=== PATIENT | male | born 1945 | race Caucasian/White ===

== ENCOUNTER → 2020-02-16 10:06 | Outpatient (CLI) | payer MEDICARE, OTHER, SELFPAY ==
[2020-02-16 11:50] LABS: Prostate Specific Ag Screen 2.7 ng/ml (0.0-4.0)
== END ==
PROVIDERS: Visit Provider Urology
DX: Z12.5 Encounter for screening for malignant neoplasm of prostate (principal)
CPT/HCPCS: 36415; G0103

== ENCOUNTER → 2021-02-15 11:37 | Outpatient (CLI) | payer MEDICARE, OTHER, SELFPAY ==
[2021-02-16 08:59] LABS: PSA, Free 0.87 ng/mL; Prostate Specific Ag 2.4 ng/mL (0.0-4.0)
== END ==
PROVIDERS: Visit Provider Urology
DX: N40.0 Benign prostatic hyperplasia without lower urinary tract symptoms (principal)
CPT/HCPCS: 36415; 84153; 84154

== ENCOUNTER → 2022-11-25 10:53 | Outpatient (CLI) | payer MEDICARE, OTHER, SELFPAY ==
[2022-11-25 12:01] LABS: Blood Urea Nitrogen 26 mg/dl (9-20); Estimated Glomerular Filt Rate 59 ml/min (>60); GFR (African American) 71 ML/MIN (>60)
== END ==
PROVIDERS: PCP Family Medicine; Visit Provider Surgery
DX: Z01.812 Encounter for preprocedural laboratory examination (principal)
CPT/HCPCS: 36415; 82565; 84520

== ENCOUNTER → 2022-12-02 09:29 | Outpatient (CLI) | payer MEDICARE, OTHER, SELFPAY ==
--- NOTE | 2022-12-02 09:29 | CT_ITS ---
FINAL REPORT TECHNIQUE: After the administration of oral and intravenous contrast, axial images were obtained through the abdomen and pelvis by computed tomography. The study was performed with techniques to keep radiation dose as low as reasonably achievable, (ALARA). Individual dose reduction techniques using automated exposure control or adjustment of mA and/or kV according to the patient's size were employed. CLINICAL HISTORY: nausea FINDINGS: Abdomen: The lung bases are clear. The liver parenchyma is homogeneous. There is a large gallstone within the gallbladder. The spleen, pancreas, adrenals appear unremarkable. There is a multitude of benign-appearing cysts in both kidneys. In addition, there is a lobular apparently enhancing mass arising from the posterolateral margin of the right kidney measuring 1.8 cm in greatest dimension. This is well seen on image 51 of series 2. The aorta is normal in caliber. There is no free fluid or adenopathy. Pelvis: The appendix is unremarkable. There is moderate diverticulosis without evidence of diverticulitis. The urinary bladder is unremarkable. There is a moderate right inguinal hernia containing bowel. There is no bowel obstruction. There is no free fluid or adenopathy. IMPRESSION: 1.8 cm enhancing mass in the periphery of right kidney concerning for renal cell carcinoma. A dedicated pre and post infusion of valuation would be of value, urologic consultation recommended. Large gallstone within the gallbladder. Reviewed, Interpreted and Dictated by Darío Nieto MD Transcribed by China Lomeli Authenticated and [facility]
== END ==
PROVIDERS: PCP Family Medicine; Visit Provider Surgery
DX: R10.9 Unspecified abdominal pain (principal)
CPT/HCPCS: 74177; Q9967

== ENCOUNTER → 2022-12-11 13:17 | Outpatient (CLI) | payer MEDICARE, OTHER, SELFPAY ==
[2022-12-11 15:06] LABS: Blood Urea Nitrogen 22 mg/dl (9-20); Estimated Glomerular Filt Rate 59 ml/min (>60); GFR (African American) 71 ML/MIN (>60)
== END ==
PROVIDERS: PCP Family Medicine; Visit Provider Urology
DX: Z01.812 Encounter for preprocedural laboratory examination (principal); N28.89 Other specified disorders of kidney and ureter
CPT/HCPCS: 36415; 82565; 84520

== ENCOUNTER → 2022-12-19 08:36 | Outpatient (CLI) | payer MEDICARE, OTHER, SELFPAY ==
--- NOTE | 2022-12-19 08:41 | CT_ITS ---
FINAL REPORT TECHNIQUE: Pre- and postcontrast images of the abdomen were performed by computed tomography. CLINICAL HISTORY: RENAL MASS, abn CT 12/02/22 COMPARISON: 12/02/2022 FINDINGS: Mild atelectasis is seen at the left lung base. There is a large gallstone with gallbladder wall thickening. Cholecystitis not excluded. If indicated, this could further evaluated with nuclear medicine hepatobiliary scan. The liver is normal in size and attenuation. The spleen is unremarkable. The adrenals are normal. The pancreas is unremarkable. There are multiple bilateral renal masses. Mass in the lateral lower pole of the right kidney demonstrating contrast enhancement measures 18 mm. There is also a 15 mm mass in the anterior left kidney with contrast enhancement. Enhancing mass in the mid lateral left kidney measures 10 mm. There is also a small enhancing mass in the lateral right mid kidney measuring 4 mm. These are all consistent with renal neoplasm, likely renal cell carcinoma. There are also bilateral, simple renal cysts. Renal veins are unremarkable. There is a small umbilical hernia containing fat. IMPRESSION: Multiple enhancing bilateral renal masses most consistent with renal cell carcinoma. Large gallstone with gallbladder wall thickening. Cholecystitis not excluded. Consider follow-up nuclear medicine hepatobiliary scan. Reviewed, Interpreted and Dictated by Dex Alejandra III, MD Transcribed by Nettie Wolff Authenticated and [facility]
== END ==
PROVIDERS: PCP Family Medicine; Visit Provider Urology
DX: N28.89 Other specified disorders of kidney and ureter (principal)
CPT/HCPCS: 74170; Q9967

== ENCOUNTER → 2023-02-26 10:42 | Outpatient (CLI) | payer MEDICARE, OTHER, SELFPAY ==
[2023-02-26 10:46] LABS: Microscopic, Urine URINE MICROSCOPIC (MICROSCOPIC)
[2023-02-26 11:25] LABS: Appearance,Urine CLEAR (Clear); Basophils % 0.8 % (0.1-2.0); Blood, Urine Negative (Negative); Color,Urine YELLOW (Yellow); Eosinophils # 0.3 K/mm3 (0.0-0.4); Glucose,Urine (UA) Negative (Negative); Hemoglobin 14.5 g/dL (14.1-18.0); Ketones,Urine Negative (Negative); Leukocyte Esterase,Urine Negative (Negative); Lymphocytes # 1.4 K/mm3 (0.7-4.5); Lymphocytes % 27.7 % (10-50); Mean Corpuscular HGB Conc 31.5 g/dL (31.8-35.4); Mean Corpuscular Hemoglobin 31.7 pg (27.0-31.2); Mean Corpuscular Volume 100.5 fl (80-94); Mean Platelet Volume 7.5 fl (7.4-10.4); Monocytes # 0.3 K/mm3 (0.1-1.0); Monocytes % 6.6 % (1.7-9.3); Neutrophils # 3.1 K/mm3 (1.8-7.8); Neutrophils % 59.9 % (37.0-80.0); Nitrate,Urine Negative (Negative); Platelet Count 148 K/mm3 (142-424); Protein,Urine Negative (Negative); Red Blood Count 4.57 M/mm3 (4.60-6.20); Red Cell Distribution Width 13.2 % (11.5-17.5); Specific Gravity, Urine >= 1.030 (1.005-1.030); Urobilinogen,Urine 0.2 EU/dl (0.2); White Blood Count 5.2 K/mm3 (4.8-10.8)
[2023-02-26 11:48] LABS: Bilirubin,Urine Negative (Negative)
[2023-02-26 11:50] LABS: Chloride 99 mmol/L (98-107)
[2023-02-26 11:51] LABS: Potassium 4.5 mmoL/L (3.5-5.1); Sodium 141 mmol/L (136-145)
[2023-02-26 11:54] LABS: Anion Gap 18.5 mEq/L (5-15); Blood Urea Nitrogen 21 mg/dl (9-20); Calcium 8.9 mg/dl (8.4-10.2); Carbon Dioxide 28 mmol/L (22.0-30.0); Estimated Glomerular Filt Rate 65 ml/min (>60); GFR (African American) 78 ML/MIN (>60); Glucose 96 mg/dl (74-100)
[2023-02-26 13:07] LABS: Squamous Epithelial Cell,Urine Occasional #/hpf (0-5); WBC,Urine Occasional #/hpf (0-3)
== END ==
PROVIDERS: PCP Family Medicine; Visit Provider Surgery
DX: K40.90 Unilateral inguinal hernia, without obstruction or gangrene, not specified as recurrent (principal)
CPT/HCPCS: 36415; 80048; 81001; 85025

== ENCOUNTER 2023-03-16 05:59 | Day surgery (SDC) | payer MEDICARE, OTHER, SELFPAY ==
[2023-03-10 14:55] VITALS: BMI 26.7
--- NOTE | 2023-03-13 10:53 | SUR.PREOP ---
spoke to pt mother, who stated pt has been sick all week with a fever and the doctors do not want to put her on antibiotics d/t her having this procedure on thursday Robert in ENT clinic was notified of this and talked to the mother who stated she will call the hospital thursday morning with an update on patient and will go from there.
[2023-03-16] VITALS (14 sets, daily range): BP systolic 119–140; BP diastolic 66–81; PULSE 54–66; RESP 14–18; TEMP 36.2–36.5; O2SAT 93–99
--- NOTE | 2023-03-16 06:52 | P.PN_ITS ---
[facility] Disclaimer: The information contained in this section may have been updated after the patient was seen, as this information can be updated by other users. Medical History Benign prostatic hyperplasia Cancer of kidney Cataract History of cataract Hypertension Kidney stone Urinary tract infection Surgical History H/O cystoscopy History of colonoscopy History of prostate surgery Family History Other Family history of cancer Social History Smoking Status: Never smoker second hand exposure: No alcohol intake: never substance use type: denies use current occupational status: retired Travel in the last 8 weeks: None household members: significant other housing: house current occupational exposures/hazards: No caffeine: No do you feel safe at home: Yes [facility] Anesthesia Checklist Patient Identification Patient Identification: Arm Band and Family Structural Data Admitted From: Home Planned Operative Procedure/s: Lapoaroscopic Inguinal herni and Umbilical r epair. Consent for Planned Operative Procedure(s) Verified: Yes Verified Documents: Surgical Consent and History and Physical NPO Status Verified Time NPO: 00:00 Additional verifications Patient : No Anesthesia Reactions: No Hx Blood Transfusions: No Blood Transfusion Reaction: No Cephalosporin Allergy: No Airway Assessment C-Spine Mobility Assessed: Yes TMJ Mobility Assessed: Yes Dentition: Good Dentition Neurological Assessment Level of Consciousness: Awake, Alert, Appropriate and Follows Commands Hx Seizures: No Numbness or tingling in extremities: No Anesthesia Plan Anesthesia Risk discussed: Yes ASA Class: III Anesthesia Type: General Preoperative Comments Pre-Operative Comments: History of possible renal cancer. Hypertension.
--- NOTE | 2023-03-16 07:58 | EXP.EVENT.NO ---
Plan was made to proceed with laparoscopic bilateral inguinal hernia repair with concomitant open umbilical hernia repair. Apparently after induction of general anesthesia nursing staff made attempts to place Leyva catheter. There was no return of urine. Anesthesia aided in attempt to place Leyva catheter. There was never any return of urine. I then entered the room and examined the patient. Catheter was replaced with 18 Danish coud? catheter and attempt was made for insertion. However there was resistance encountered near the region of presumed prostate and the catheter could not be advanced. There was some blood at the meatus. Due to patient likely having some BPH, although he did have previous TURP, and potential that he had creation of false passage with initial attempt at placement of urinary catheter by nursing and anesthesia plan was made to abort the procedure since urology not available at this time. I will see if he is able to void in the postoperative phase. If not, patient may need transfer for urology evaluation.
--- NOTE | 2023-03-16 08:12 | P.PNANES_ITS ---
[facility] Anesthesia Record Part I Anesthesia Record I Intake, IV Amount: 800 Estimated blood loss (mL): 0 Urine output (mL): 0 Blood Products used (#): none Blood Pressure: 131/75 SaO2: 94 Pulse Rate: 61 Respiratory Rate: 14 Temperature: 97.1 F Patient is:: Drowsy and Stable Stable to PACU at:: 08:05 Comments:: Surgery cancelled due to inability to insert layton catheter.
--- NOTE | 2023-03-16 09:09 | SUR.PHASEII ---
patient has drank two cups of water so far, pt feels no need to urinate just yet.
--- NOTE | 2023-03-16 10:11 | SUR.PHASEII ---
0945 abdomen noted to be hard, pt has had more bloody drainage from penis than pacu. pt cleaned and bed changed. 0955- pt felt the need to urinate. he had 250ml of blood tinged urine per urinal. 1005- Debbie Ni RN obtained the bladder scanned which showed 400ml still in bladder. Dr. Yoo notified.
--- NOTE | 2023-03-16 10:12 | SUR.OPER ---
0712- THIS NURSE ATTEMPTED TO INSERT 16FR COUDE CATHETER AND NOTED DIFFICULTY WITH INSERTION. THIS NURSE INSTRUCTED [facility] [employer] TO ASSIST OR GET ANOTHER RN TO ATTEMPT INSERTION. RETAIL AND REST[employer]URANT ASSOCIATE APPLIED STERILE GLOVES AND ADVANCED 16FR COUDE IN WITHOUT DIFFICULTY. BALLOON WAS INFLATED AND NO URINE OUTPUT WAS NOTED AT THIS TIME. SECOND RN AT BEDSIDE AND BALLOON WAS DEFLATED. MD AT BESIDE AND ATTEMPTED TO INSERT 18FR COUDE WITH DIFFICULTY. BRIGHT RED BLOOD WAS NOTED ON REMOVAL. MD ORDERED TO CANCEL PROCEDURE D/T DIFFICULTY WITH CATHETER INSERTION.
--- NOTE | 2023-03-16 11:03 | SUR.PHASEII ---
125ml pink tinged urine at 1025 357ml pink tinged urine at 1100 abd still noted to be firm, patient denies any pain upon assessment.
--- NOTE | 2023-03-16 12:04 | SUR.PHASEII ---
225ml out at 1145 dr. ho at bedside at 1136 and ok'd patient to be discharge.
--- NOTE | 2023-03-16 13:50 | EXP.ANES.II ---
[facility] Anesthesia Record Part II Anesthesia Record Part II Discharge Time: 08:35 Destination: Surgical Day Care (OP Surgery) PACU nurse assessment reviewed?: Yes Patient Condition:: Good Anesthesia Complications:: None Swallowing reflex intact?: Yes Cyanosis?: No Blood Pressure: 126/67 Pulse Rate: 57 Temperature: 97.4 F Mental Status: Alert & Oriented Pain level:: 0 Nausea and/or vomitting:: None Intake, IV Amount: 0
== END 2023-03-16 11:54 | disposition home or self-care (01) ==
PROVIDERS: PCP Family Medicine; Visit Provider Surgery
PROC: (CPT 49650; principal; 2023-03-16 07:30)
DX: Z53.09 Procedure and treatment not carried out because of other contraindication (principal); N39.9 Disorder of urinary system, unspecified; K40.20 Bilateral inguinal hernia, without obstruction or gangrene, not specified as recurrent; Z79.899 Other long term (current) drug therapy
CPT/HCPCS: 49650; 96374; J2405

== ENCOUNTER → 2023-05-11 11:38 | Outpatient (CLI) | payer MEDICARE, OTHER, SELFPAY | PROVIDERS: PCP Family Medicine; Visit Provider Urology | DX: N28.89 Other specified disorders of kidney and ureter (principal) | CPT/HCPCS: 87086 ==

== ENCOUNTER 2024-06-16 11:05 | Emergency (ER) | payer MEDICARE, OTHER, SELFPAY ==
[2024-06-16 11:05] VITALS: BP 135/66; PULSE 57; RESP 18; TEMP 36.4; O2SAT 99; BMI 27.3
--- NOTE | 2024-06-16 11:28 | XR_ITS ---
FINAL REPORT CLINICAL HISTORY: fall yesterday, LT WRIST PAIN COMPARISON: None FINDINGS: LEFT WRIST Three views demonstrate no acute fracture or dislocation. The visualized joint spaces are normally aligned. The soft tissues are unremarkable. IMPRESSION: No acute bony abnormality. Reviewed, Interpreted and Dictated by Darío Nieto MD Transcribed by Mylene Ramirez Authenticated and [facility]
--- NOTE | 2024-06-16 12:15 | EXP.UTC ---
Discharge Plan Disposition Patient Disposition: Home, Self-Care Condition: Good Prescriptions Prescriptions: No Action cholecalciferol (vitamin D3) 1,000 unit capsule 1,000 unit PO ONCE multivitamin tablet 1 tab PO ONCE losartan 50 mg tablet 100 mg PO DAILY amlodipine 5 mg tablet 7.5 mg PO DAILY terazosin 2 mg capsule 2 mg PO DAILY Referrals Follow up/Referrals: Carlin Boyd DO [Staff Physician] - See instructions Marco Nayak MD [Primary Care Provider] - See instructions Activity Restrictions/Add. Instructions Additional Instructions/Restrictions: *RICE, Rest the extremity, Ice 15-20 minutes 3-4 times daily, Compress- wear the jeff wrap as discussed as much as possible to help reduce swelling and pain, Elevate the extremity when at rest *Jeff wrap is for support and help control swelling, use it except in the shower. Be sure that is not to tight but not to loose either *Elevate when resting? *Ibuprofen 600-800mg every 6-8 hours as needed for pain an inflammation. If need something more can take Tylenol in between doses of Ibuprofen to help Immediately follow up with your family doctor for new or worsening of symptoms, or no noticeable improvement over the next 3-5 days Clinical Impressions Clinical Impression: Contusion of left wrist Qualifiers: Encounter type: initial encounter Qualified Code(s): S60.212A - Contusion of left wrist, initial encounter Instructions Patient Instructions: Wrist Sprain, DI for Wrist Sprain, How To Perform RICE (Rest, Ice, Compress, Elevate) Print Language Print Language: Cuban Discharge ED Provider: Marnie Sue [facility] General Stated complaint: AO fall left wrist pain Mode of Arrival: Ambulatory Source of Information: Patient Limitations: No Limitations Time Seen by Provider: 06/16/24 12:15 Description of Symptoms (Recalled from Triage Doc. by RN): left wrist pain,fell HEENT Symptoms (Recalled from RN notes): No Resp Symptoms (Recalled from RN notes): No Skin Symptoms (Recalled from RN notes): No MS Symptoms (Recalled from RN notes): Yes Functional Status (Recalled from RN notes): na History of Present Illness Provider Complaint: Patient fell last night at home and stuck his hands out to catch his fall and hurt his left wrist States that he has a few other scratches and bumps but they are not bothering him States he has pain in his left wrist when he turns or moves it certain ways so today he came in to get it checked Related Data Home Medications ?Medication ?Instructions ?Recorded ?Confirmed cholecalciferol (vitamin D3) 25 1,000 unit PO ONCE Supplement 02/18/18 03/10/23 mcg (1,000 unit) capsule multivitamin 1 tab PO ONCE Supplement 02/18/18 03/10/23 amlodipine 5 mg tablet 7.5 mg PO DAILY High blood pressure 02/17/22 03/10/23 losartan 50 mg tablet 100 mg PO DAILY blood pressure 02/17/22 03/10/23 terazosin 2 mg capsule 2 mg PO DAILY . 02/26/23 03/10/23 Allergies Allergy/AdvReac Type Severity Reaction Status Date / Time Cephalosporins Allergy Unknown Verified 03/10/23 14:48 allergy reaction chlorthalidone Allergy Unknown Verified 03/10/23 14:48 allergy reaction ciprofloxacin Allergy Unknown Verified 03/10/23 14:48 allergy reaction clindamycin Allergy Unknown Verified 03/10/23 14:48 allergy reaction lisinopril Allergy Unknown Verified 03/10/23 14:48 allergy reaction Penicillins Allergy Unknown Verified 03/10/23 14:48 allergy reaction Sulfa (Sulfonamide Allergy Unknown Verified 03/10/23 14:48 Antibiotics) allergy reaction Worker's Comp Is this a Worker's Comp case?: No Is this an [facility] Worker's Comp?: No Is this a [place] Worker's Comp?: No [facility] Disclaimer: The information contained in this section may have been updated after the patient was seen, as this information can be updated by other users. Medical History (Updated 06/16/24 @ 12:44 by Marnie Sue APRN) Urinary tract infection Kidney stone Benign prostatic hyperplasia History of cataract Hypertension Cancer of kidney Cataract Surgical History H/O cystoscopy History of prostate surgery History of colonoscopy Family History Other Family history of cancer Social History Smoking Status: Never smoker second hand exposure: No alcohol intake: never substance use type: denies use current occupational status: retired Travel in the last 8 weeks: None household members: significant other housing: house current occupational exposures/hazards: No caffeine: No do you feel safe at home: Yes ROS Obtained: Yes All systems reviewed & no additional complaints except as documented and Yes Systems reviewed as appropriate & no additional complaints except as documented Constitutional Constitutional: Reports system reviewed and no additional complaints, except as documented and Reports as per HPI ENT Ears, Nose, Mouth, and Throat: Reports system reviewed and no additional complaints, except as documented and Reports as per HPI Cardiovascular Cardiovascular: Reports system reviewed and no additional complaints, except as documented and Reports as per HPI Respiratory Respiratory: Reports system reviewed and no additional complaints, except as documented and Reports as per HPI Gastrointestinal Gastrointestingal: Reports system reviewed and no additional complaints, except as documented and as per HPI Musculoskeletal Musculoskeletal: Reports system reviewed and no additional complaints, except as documented and Reports as per HPI Comments: pain and swelling in left wrist feels like he has a knot on it Physical Exam General General appearance: alert and in no apparent distress ENT ENT exam: Present mucous membranes moist Respiratory Respiratory exam: Present normal lung sounds bilaterally; Absent respiratory distress or wheezes Cardiovascular Cardiovascular exam: Present regular rate, normal rhythm and normal heart sounds Expanded Upper Extremity Exam Left: Forearm/Wrist exam: Present tenderness, swelling and ecchymosis; Absent deformity or erythema Hand exam: Present normal inspection L/R Arms Top View: 1. reports pain with movement, bruising and mild swelling noted Neurological Exam Neurological exam: Present alert, oriented X3 and normal gait Medical Decision Making Erwin Inquiry Pt receiving controlled substance: No Erwin was queried for this patient: No Vital Signs: 06/16/24 11:05 Temperature 97.6 F Temperature Source Oral Pulse Rate [Right] 57 L Respiratory Rate 18 Blood Pressure [Right Arm] 135/66 Blood Pressure Mean [Right Arm] 89 02 Sat by Pulse Oximetry 99 Oxygen Delivery Method Room Air Orders (Tests/Meds): ORDERS Category Date Time Status Wrist XR left minimum 3 views [XR wrist LT min 3V] Stat Exams 06/16/24 11:28 Taken Radiology Data #1: Image(s): Wrist Procedures Orthopedic Splinting/Casting Injury #1: Side: left Upper Extremity Injury Location: wrist Upper Extremity Immobilizer: wrist splint Post Cast/Splinting Neuro Status: intact and no change Post Cast/Splinting Vasc Status: intact and no change
[2024-06-16 13:01] VITALS: BP 135/66; PULSE 57; RESP 18; TEMP 36.4; O2SAT 99
== END 2024-06-16 13:02 | disposition home or self-care (01) ==
PROVIDERS: Emergency Provider Nurse Practitioner; PCP Family Medicine
DX: S63.502A Unspecified sprain of left wrist, initial encounter (principal); S60.212A Contusion of left wrist, initial encounter; W19.XXXA Unspecified fall, initial encounter
CPT/HCPCS: 73110; 99203; 99212; G0463